=== PATIENT | female | born 1965 | race Caucasian/White ===

== ENCOUNTER → 2019-09-01 | Outpatient (CLI) | payer OTHER | LOC: CAT 09:04 | DX: N20.0 Calculus of kidney (principal); N21.0 Calculus in bladder ==

== ENCOUNTER → 2021-09-13 | Outpatient (CLI) | payer OTHER | LOC: ULTRA 10:12 | PROVIDERS: ATTEND Family Medicine | DX: R10.2 Pelvic and perineal pain (principal) ==